=== PATIENT | female | born 1975 | race Caucasian/White ===

== ENCOUNTER → 2016-06-01 | Outpatient (CLI) | payer MEDICAID ==
[~2016-06-01] MED LIST: CIPRO 500MG TA500 MG PO; DARVOCET-N 1001 EACH PO; FLEXERIL10 MG PO; HYDROCODONE1 TABLET PO; IBU-8800 MG PO; KEFLEX 500MG.500 MG PO; LAMISIL 250MG250 MG PO; NOMEDS XX; RONDEC-DM 118118 ML PO; STERAPRED DS10 MG PO; SULFAMETHOXAZOL1 TA6 PO; TRAMADOL50 M1 PO; ULTRAM50 MG PO; VICODIN 5/500 T1 TAB PO; VOLTAREN75 MG PO
[2016-06-01 09:03] LABS: HEMOGLOBIN 13.3 g/dL (12.2-16.2); LYMPH # 1.3 K/mm3 (0.7-4.5); LYMPH % 30.8 % (10-50.0)
[2016-06-01 10:59] LABS: BUN 15 mg/dL (7-18); GFR (ESTIMATED) 79 ML/MIN (59-)
== END ==
LOC: LAB 08:39
PROVIDERS: Nurse Practitioner Family
DX: R20.2 Paresthesia of skin (principal); R07.2 Precordial pain

== ENCOUNTER → 2016-06-17 | Outpatient (CLI) | payer MEDICAID ==
--- NOTE | 2016-06-17 13:46 | RADIOLOGY REPORT PS360 ---
History and Indications: Obesity, hypertension, hyperlipidemia, family history, chest pain, shortness of breath palpitations and fatigue . Procedure: patient exercised on Durga protocol 7 minutes, resting heart rate was 72 beats resting blood pressure 136/76, with exercise maximum heart rate achieved was 1 63 bpm which is greater than 85% of the maximum predicted heart rate and a blood pressure was 160/95 Cassidy [shortness of breath and chest tightness, patient has good exercise capacity achieved 10.1mets of workload on treadmill the blood pressure response to exercise was adequate Electrocardiogram: Resting electrocardiogram showed the sinus rhythm, with exercise there is [address] segment depression from the baseline EKG. The EKG portion of the exercise Myoview is positive for ischemia. Cardiac stress and resting SPECT images: Cardiac stress and the suspect images of technetium 99 Myoview 10.6 mCi at rest, and 31.3 mCi at stress, gated SPECT further analysis of segmental wall motion and calculation of the ejection fraction also done. Cardiac stress and the suspect images show a mild fixed defect in the anterior wall with perfusion of the apex being normal and normal contractility in the gated SPECT is likely secondary to soft tissue attenuation, no reversible ischemia seen. Computer derived ejection fraction is 56% with no obvious regional wall motion abnormality, right ventricle is normal size and contractility. Conclusion: 1. The EKG portion of the exercise Myoview is positive for ischemia patient has good exercise capacity achieved 10.1mets of workload on treadmill the blood pressure response to exercise was adequate test was started due to shortness of breath and chest tightness. 2. No obvious scintigraphic evidence of reversible ischemia seen. Computer derived ejection fraction is 56 with no obvious regional wall motion abnormality, right ventricle is normal size and contractility.
--- NOTE | 2016-06-17 14:06 | RADIOLOGY REPORT PS360 ---
PROCEDURE: 2-D M-mode and color Doppler study INDICATIONS FOR THE TEST: Chest pain X COPD Heart Murmur Tobacco SmokingX Palpitations Fatigue Syncope Edema HypertensionXDiabetes Mellitus Rheumatic Fever SOB OLIVEIRA ObesityXHyperlipidemia Family History HD Additional History PATIENT INFORMATION HEIGHT: 67 WEIGHT:230 GENDER: Female B/P:140/80 2-D/M-MODE INTERPRETATION: 2-D MEASUREMENTS OBSERVED VALUES IN CMS Right Ventricular Dimension (RVDd) 2.5 Interventricular Septum (Thickness)(IVsd) .8 Left Ventricular Internal Dimensions(LVIDd) 5.4 Left Ventricular Posterior Wall (Thickness)(LVPWd) 1.1 Aortic Root 2.9 Aortic Cusp Separation 1.9 Left Atrial Dimensions (LAD) 3.6 2D 1. The left atrium is normal size, left ventricle is normal size, the left ventricle wall thickness is upper limit of the normal, there is preserved left ventricular systolic function, visually estimated ejection fraction 55% with no obvious regional wall motion abnormality. 2. The right atrium and right ventricle are normal size and contractility. 3. The aortic, mitral and tricuspid valve is structurally normal. 4. The pulmonic valve is not well visualized. 5. There is no significant pericardial effusion noted. DOPPLER INTERROGATION: Doppler interrogation of the aortic mitral and tricuspid presence of trace mitral and tricuspid regurgitation, diastolic parameters are within normal range. CONCLUSION: 1. Normal left ventricular size, preserved left ventricular systolic function visually estimated ejection fraction 55% with no obvious regional wall motion abnormality. 2. Mild mitral and tricuspid regurgitation. 3. No significant pericardial effusion noted.
== END ==
LOC: RAD 05:40
DX: R07.89 Other chest pain (principal); R06.00 Dyspnea, unspecified; I20.9 Angina pectoris, unspecified
CPT/HCPCS: A9502